=== PATIENT | female | born 1970 | race Caucasian/White ===

== ENCOUNTER → 2018-10-12 08:25 | Outpatient (CLI) | payer OTHER, SELFPAY ==
[2018-10-12 09:10] LABS: Add Manual Diff / Slide Review NO; Basophils Percent Auto 1.1 % (0-2); Eosinophils Percent Auto 5.4 % (2-4); Hematocrit 33.3 % (36-46); Hemoglobin 11.2 g/dL (12.0-16.0); Lymphocytes Percent Auto 30.9 % (25-40); Mean Corpuscular HGB Conc 33.7 % (30-36); Mean Corpuscular Hemoglobin 29.6 PG (26-34); Mean Corpuscular Volume 87.9 fL (80-100); Monocytes Percent Auto 7.6 % (3-14); Neutrophils Absolute Auto 1500 /uL (1500-7000); Platelet Count 161 X10^3/uL (150-400); Red Blood Cell Count 3.79 X10^6/uL (4.0-5.2); Red Cell Distribution Width 13.1 % (11.6-14.8); White Blood Cell Count 2.8 X10^3/uL (4.5-11.0)
[2018-10-12 09:27] LABS: Alanine Aminotransferase 29 IU/L (9-52); Albumin 4.3 g/dL (3.5-5.0); Albumin Globulin Ratio 1.7 (1.0-2.8); Alkaline Phosphatase 53 U/L (38-126); Aspartate Aminotransferase 29 IU/L (14-36); BUN Creatinine Ratio 11.3 (6-22); Bilirubin Total 0.4 mg/dL (0.2-1.3); Blood Urea Nitrogen 9 mg/dL (7-17); Calcium 9.1 mg/dL (8.4-10.2); Carbon Dioxide 27 mmol/L (22-32); Chloride 103 mmol/L (98-107); Cholesterol 137 mg/dL (140-199); Estimated Glomerular Filt Rate > 60.0 mL/min (>60); Globulin 2.6 g/dL (1.7-4.1); Glucose 91 mg/dL (70-100); HDL Cholesterol 53 mg/dL (40-60); HEMOLYSIS < 15 (0-50); LDL Cholesterol Calculated 76 mg/dL (<100); Sodium 140 mmol/L (137-145); Total Protein 6.9 g/dL (6.3-8.2); Triglycerides 42 mg/dL (35-150)
[2018-10-12 10:16] LABS: TSH w/ Reflex to FT4 1.95 uIU/mL (0.47-4.68)
== END ==
PROVIDERS: PCP Family Medicine; Visit Provider Family Medicine
DX: Z00.00 Encounter for general adult medical examination without abnormal findings (principal)
CPT/HCPCS: 36415; 80053; 80061; 84443; 85025

== ENCOUNTER 2019-06-19 11:30 | Outpatient (RCR) | payer OTHER, SELFPAY ==
--- NOTE | 2019-05-08 19:52 | PT.OIE ---
Current Diagnoses Sacroiliitis, not elsewhere classified (05/02/19) Stress incontinence (female) (male) (05/02/19) Pelvic muscle wasting (05/02/19) Provider Visit Care Team Role Provider Type Zakiya Berger MD Attending Provider Physician Primary Care Provider Specialty: Family Practice Address: [address] [place] [address], [id number] Email: Physical Therapy Initial Evaluation PT-OP-A Visit Information Start: 05/08/19 19:17 Freq: Status: Active Protocol: Document 05/02/19 11:15 [facility] (Rec: 05/08/19 19:49 [facility] [email or web address]) Out-Patient Physical Therapy Visit Information Visit Information Visit Type Initial Evaluation Visit Note 48 year old female with urinary stress incontinence symptoms and history of R SI pain. She is s/p 6 vaginal deliveries and after each delivery she notes she had more problems with urinary incontinence Visit Start Time 11:15 Visit Stop Time 12:00 Total Visit Minutes 45 Visit Number 1 Evaluation Information Evaluation Date 05/08/19 PT-OP-B Current Condition Start: 05/08/19 19:17 Freq: Status: Active Protocol: Document 05/02/19 11:15 [facility] (Rec: 05/08/19 19:49 [facility] [email or web address]) Current Condition History of Current Condition Onset Date over the span of 10 years Current Complaints urinary leakage with running, jumping, punching in karate, lifting History of Current Condition 48 year old female with urinary stress incontinence that has worsened over time with her child births. She has had 6 vaginal deliveries and her youngest child is 5 years old. She likes to do Karate and there are certain moves she is unable to do as she will leak. She also leaks with running, jumping, and carrying heavy objects. Other past medical history includes a history of R SI pain, asthma Treatment Goals Patient/Caregiver Goals To be able to contine with Karate without leaking, run after her kids, jump on the trampoline without leaking Prior Functional Status Baseline Function- ADL's Independent Baseline Function- Mobility Independent Current Functional Impairments (Reported) Functional Limitations- Recreation/ Urinary leakage with Hobbies recreational activies PT-OP-C Subjective Start: 05/08/19 19:17 Freq: Status: Active Protocol: Document 05/08/19 11:15 [facility] (Rec: 05/08/19 19:51 [facility] [email or web address]) OP-PT Pain Assessment Location R SI pain Pain Location Details R SI JOINT Intensity 6 Scale Used Numeric (1 - 10) Description Aching Tender With Movement Frequency Intermittent Pain Aggravating Factors Changing Position ADL's Activity Exercise Bending Lifting PT-OP-I Pelvic Floor Start: 05/08/19 19:17 Freq: Status: Active Protocol: Document 05/02/19 11:15 [facility] (Rec: 05/08/19 19:49 [facility] [email or web address]) Pelvic Floor Assessment Urine Pelvic Floor Surgery No Urinary Symptoms Falling Out Feeling/Heavy Other Urinary Symptoms Cristina notes she will experience symptoms of heavyness with exertion or straining and at the end of each day. Urinary Stress incontinence Leakage Size Medium Leakage Cause Cough Exercise Lifting Sneeze Urge Leaks Per Day 5-7 per week Voiding Frequency 7-10 times per day Nocturia no Urine Pad Type Panty Liner Pelvic Clock Pelvic Clock 12-3 Atrophy Pelvic Clock 3-6 Atrophy Pelvic Clock 6-9 Guarding Tightness Pelvic Clock 9-12 Atrophy Prolapse Uterine Prolapse Grade 2 SEMG (uV) Baseline 2 10 Second Contraction 6.5 Recruitment Pattern Fair Relaxation Fair Holding Poor/Slow Stability of Hold Poor/Slow SEMG Stability of Rest Fair Contraction Ability Voluntary Contraction Weak Voluntary Relaxation Weak Manual Muscle Testing Left 3 Manual Muscle Testing Right 3 Manual Muscle Testing Anterior 2 Manual Muscle Testing Posterior 3 Muscle Endurance (Seconds) 4 Comments Pelvic Floor Comments Pelvic floor guarding on the right side of the illiococcygeus. It is the right side that Cristina often gets SI pain on as well. Cristina was guarded on EMG biofeedback until her legs were placed over a bolster and then she did much better and resting tone went down PT-OP-J Posture/Palpation/Skin Start: 05/08/19 19:17 Freq: Status: Active Protocol: Document 05/02/19 11:15 [facility] (Rec: 05/08/19 19:49 [facility] [email or web address]) Palpation Assessment Location One Palpation Location Right SI, PSIS Palpation Findings Tenderness Palpation Details pain at the right SI rated 0-6 .5 depending on activity PT-OP-Q Treatments Start: 05/08/19 19:17 Freq: Status: Active Protocol: Document 05/02/19 11:15 [facility] (Rec: 05/08/19 19:49 [facility] [email or web address]) Therapeutic Exercises Supine Exercises 2 Supine Exercise Name happy baby stretch 1 Supine Exercise Name EMG biofeedback with pelvic floor exercises Reps/Minutes 10 reps x 3 times per day 10 second hold x 10 sec releax Comments Cristina was educated on anterior pelvic floor facilitation, PT-OP-T Assessment and Plan Start: 05/08/19 19:17 Freq: Status: Active Protocol: Document 05/02/19 11:15 [facility] (Rec: 05/08/19 19:49 [facility] [email or web address]) Physical Therapy Assessment Goals Four Impairment R SI pain and right iliococcygeus muscle guarding Longterm Goal (LTG) WIth manual therapy techniques , biofeedback, and stretches Cristina is able to relax the right lateral wall of the pelvci floor and she has decreased c/o SI pain. Three Impairment Decreased endurance of the levator ani Short Term Goal (STG) Cristina is able to sustain a pelvic floor contraction x 10 seconds in supine STG Duration 4 weeks Longterm Goal (LTG) Cristina is able to sustain a pelvic floor contraction x 10 seconds in standing LTG Duration 8 weeks Two Impairment Decreased strength of the levator ani 2/5 anterior wall, 3/5 post, lateral [employer] Goal (LTG) Improve pelvic floor strength to 4/5 MMT or better LTG Duration 8 weeks One Impairment Urinary stress incontinence Short Term Goal (STG) Decrease leakage from 5-7 times per week to 1-2 and Cristina is educated on proper bracing and breathing techniques to avoid bearing down on the pelvic floor STG Duration 4 weeks [employer]st Goal (LTG) Cristina is able to return to activities such as karate moves without leakage LTG Duration 8 weeks Assessment Summary Assessment Cristina presents to physical therapy today with signs and symptoms of urinary stress incontinence and Right sided SI pain. She has had symptoms worsen over the years with each delivery. She has had 6 vaginal deliveries. She also has a history of right sided SI pain. Cristina reports she does Karate and there is a move where she is in a squat position and has to punch. She is unable to do this due to leakage. She also leaks with running, lifting, carrying heavy objects, or jumping on the trampoline. She describes her SI pain as intermittent and can range from no pain to 6.5/10 pain. With examination today Cristina is weak in her anterior pelvic floor 2/5 MMT. All other MMT of the levator ani is 3/5. There is a 2nd degree uterine prolapse and Cristina describes pelvic heaviness at the end of her day and if she has exerted herself or strained. The right lateral wall of the iliococcygeus is guarded and tight and this is the same side as her SI pain. Treatment will work towards releasing this guarding and improving facilitation of the anterior portion of the levator ani. Endurance is limited to 4-5 seconds so endurance training will be added to her program. Treatment will utilize EMG biofeedback and a possible trial of NMES to help facilitation pelvic floor contractions. Cristina is a good candidate for PT. Physical Therapy Plan Frequency and Duration Frequency of Treatment 1x/Week Duration of Treatment 8 Plan of Care Start Date 05/02/19 Plan of Care End Date 06/27/19 Therapeutic Interventions Therapeutic Interventions Home Exercise Program Manual Therapy Neuromuscular Re-education Patient/Caregiver Education Self-Care/Home Management Soft Tissue Mobilization Therapeutic Exercises Modalities Biofeedback Electric Stimulation Next Visit Focus/Plan Next Note Type Treatment Note Next Visit Plan Review pelvic floor facilitation on EMG biofeedback, pelvic stretches to decreased right sided guarding and SI pain
--- NOTE | 2019-05-21 17:26 | PT.OTN ---
Current Diagnoses Sacroiliitis, not elsewhere classified (05/21/19) Stress incontinence (female) (male) (05/21/19) Pelvic muscle wasting (05/21/19) Physical Therapy Treatment Note PT-OP-A Visit Information Start: 05/08/19 19:17 Freq: Status: Active Protocol: Document 05/21/19 17:18 [facility] (Rec: 05/21/19 17:26 [facility] [email or web address]) Out-Patient Physical Therapy Visit Information Visit Information Visit Type Treatment Note Visit Start Time 15:15 Visit Stop Time 16:00 Total Visit Minutes 45 Visit Number 2 PT-OP-B Current Condition Start: 05/08/19 19:17 Freq: Status: Active Protocol: Document 05/02/19 11:15 [facility] (Rec: 05/08/19 19:49 [facility] [email or web address]) Current Condition History of Current Condition Onset Date over the span of 10 years Current Complaints urinary leakage with running, jumping, punching in karate, lifting History of Current Condition 48 year old female with urinary stress incontinence that has worsened over time with her child births. She has had 6 vaginal deliveries and her youngest child is 5 years old. She likes to do Karate and there are certain moves she is unable to do as she will leak. She also leaks with running, jumping, and carrying heavy objects. Other past medical history includes a history of R SI pain, asthma Treatment Goals Patient/Caregiver Goals To be able to contine with Karate without leaking, run after her kids, jump on the trampoline without leaking Prior Functional Status Baseline Function- ADL's Independent Baseline Function- Mobility Independent Current Functional Impairments (Reported) Functional Limitations- Recreation/ Urinary leakage with Hobbies recreational activies PT-OP-C Subjective Start: 05/08/19 19:17 Freq: Status: Active Protocol: Document 05/21/19 17:18 [facility] (Rec: 05/21/19 17:26 [facility] [email or web address]) OP-PT Subjective Patient Comments Patient Comments Cristina reports she had a appt with dr Silverio and is going to get a sling repair done the end of July PT-OP-I Pelvic Floor Start: 05/08/19 19:17 Freq: Status: Active Protocol: Document 05/02/19 11:15 [facility] (Rec: 05/08/19 19:49 [facility] [email or web address]) Pelvic Floor Assessment Urine Pelvic Floor Surgery No Urinary Symptoms Falling Out Feeling/Heavy Other Urinary Symptoms Cristina notes she will experience symptoms of heavyness with exertion or straining and at the end of each day. Urinary Stress incontinence Leakage Size Medium Leakage Cause Cough Exercise Lifting Sneeze Urge Leaks Per Day 5-7 per week Voiding Frequency 7-10 times per day Nocturia no Urine Pad Type Panty Liner Pelvic Clock Pelvic Clock 12-3 Atrophy Pelvic Clock 3-6 Atrophy Pelvic Clock 6-9 Guarding Tightness Pelvic Clock 9-12 Atrophy Prolapse Uterine Prolapse Grade 2 SEMG (uV) Baseline 2 10 Second Contraction 6.5 Recruitment Pattern Fair Relaxation Fair Holding Poor/Slow Stability of Hold Poor/Slow SEMG Stability of Rest Fair Contraction Ability Voluntary Contraction Weak Voluntary Relaxation Weak Manual Muscle Testing Left 3 Manual Muscle Testing Right 3 Manual Muscle Testing Anterior 2 Manual Muscle Testing Posterior 3 Muscle Endurance (Seconds) 4 Comments Pelvic Floor Comments Pelvic floor guarding on the right side of the illiococcygeus. It is the right side that Cristina often gets SI pain on as well. Cristina was guarded on EMG biofeedback until her legs were placed over a bolster and then she did much better and resting tone went down PT-OP-J Posture/Palpation/Skin Start: 05/08/19 19:17 Freq: Status: Active Protocol: Document 05/02/19 11:15 [facility] (Rec: 05/08/19 19:49 [facility] [email or web address]) Palpation Assessment Location One Palpation Location Right SI, PSIS Palpation Findings Tenderness Palpation Details pain at the right SI rated 0-6 .5 depending on activity PT-OP-Q Treatments Start: 05/08/19 19:17 Freq: Status: Active Protocol: Document 05/21/19 17:18 [facility] (Rec: 05/21/19 17:26 [facility] [email or web address]) Therapeutic Exercises Supine Exercises 6 Supine Exercise Name standing goddess pose with pelvic floor contraction 5 Supine Exercise Name templates for eccentric control and coordination 4 Supine Exercise Name roll outs with theraband Reps/Minutes 3 x 10 reps 3 Supine Exercise Name quick contractions Reps/Minutes x 10 2 Supine Exercise Name happy baby stretch Comments and pelvic floor squat in full squat position as an option 1 Supine Exercise Name EMG biofeedback with pelvic floor exercises Reps/Minutes 10 reps x 3 times per day 10 second hold x 10 sec releax Comments Cristina was educated on anterior pelvic floor facilitation, Self-Care/Home Management Treatment Education Patient Education Home Exercise Program Other Education education on pelvic floor contraction with sit to stand and in squat position for Karate with punching. Avoidance of downward pressure with So Tam Do movements PT-OP-T Assessment and Plan Start: 05/08/19 19:17 Freq: Status: Active Protocol: Document 05/21/19 17:18 [facility] (Rec: 05/21/19 17:26 [facility] [email or web address]) Physical Therapy Assessment Assessment Summary Assessment Cristina tends to use her adductors for pelvic floor contraction, I worked with adding in hip ER rotation today to begin improving strength of the rotators. We also worked on her standing positions with So Tam Do. Continue to work on pelvic floor endurance. Resting tone was improved today. Physical Therapy Plan Frequency and Duration Frequency of Treatment 1x/Week Duration of Treatment 8 Plan of Care Start Date 05/02/19 Plan of Care End Date 06/27/19 Therapeutic Interventions Therapeutic Interventions Home Exercise Program Manual Therapy Neuromuscular Re-education Patient/Caregiver Education Self-Care/Home Management Soft Tissue Mobilization Therapeutic Exercises Modalities Biofeedback Electric Stimulation Next Visit Focus/Plan Next Note Type Treatment Note Next Visit Plan begin TA stabilization in supine, seated Pelvic floor engagement with punches
--- NOTE | 2019-05-28 15:00 | PT.OTN ---
Current Diagnoses Sacroiliitis, not elsewhere classified (05/28/19) Stress incontinence (female) (male) (05/28/19) Pelvic muscle wasting (05/28/19) Physical Therapy Treatment Note PT-OP-A Visit Information Start: 05/08/19 19:17 Freq: Status: Active Protocol: Document 05/28/19 14:52 [facility] (Rec: 05/28/19 15:00 [facility] [email or web address]) Out-Patient Physical Therapy Visit Information Visit Information Visit Type Treatment Note Visit Start Time 13:45 Visit Stop Time 14:30 Total Visit Minutes 45 Visit Number 3 Evaluation Information Evaluation Date 05/08/19 PT-OP-B Current Condition Start: 05/08/19 19:17 Freq: Status: Active Protocol: Document 05/02/19 11:15 [facility] (Rec: 05/08/19 19:49 [facility] [email or web address]) Current Condition History of Current Condition Onset Date over the span of 10 years Current Complaints urinary leakage with running, jumping, punching in karate, lifting History of Current Condition 48 year old female with urinary stress incontinence that has worsened over time with her child births. She has had 6 vaginal deliveries and her youngest child is 5 years old. She likes to do Karate and there are certain moves she is unable to do as she will leak. She also leaks with running, jumping, and carrying heavy objects. Other past medical history includes a history of R SI pain, asthma Treatment Goals Patient/Caregiver Goals To be able to contine with Karate without leaking, run after her kids, jump on the trampoline without leaking Prior Functional Status Baseline Function- ADL's Independent Baseline Function- Mobility Independent Current Functional Impairments (Reported) Functional Limitations- Recreation/ Urinary leakage with Hobbies recreational activies PT-OP-C Subjective Start: 05/08/19 19:17 Freq: Status: Active Protocol: Document 05/28/19 14:52 [facility] (Rec: 05/28/19 15:00 [facility] [email or web address]) OP-PT Subjective Patient Comments Patient Comments Cristina reports she has been working on her exercises at home. She has been doing her full squat stretch PT-OP-I Pelvic Floor Start: 05/08/19 19:17 Freq: Status: Active Protocol: Document 05/02/19 11:15 [facility] (Rec: 05/08/19 19:49 [facility] [email or web address]) Pelvic Floor Assessment Urine Pelvic Floor Surgery No Urinary Symptoms Falling Out Feeling/Heavy Other Urinary Symptoms Cristina notes she will experience symptoms of heavyness with exertion or straining and at the end of each day. Urinary Stress incontinence Leakage Size Medium Leakage Cause Cough Exercise Lifting Sneeze Urge Leaks Per Day 5-7 per week Voiding Frequency 7-10 times per day Nocturia no Urine Pad Type Panty Liner Pelvic Clock Pelvic Clock 12-3 Atrophy Pelvic Clock 3-6 Atrophy Pelvic Clock 6-9 Guarding Tightness Pelvic Clock 9-12 Atrophy Prolapse Uterine Prolapse Grade 2 SEMG (uV) Baseline 2 10 Second Contraction 6.5 Recruitment Pattern Fair Relaxation Fair Holding Poor/Slow Stability of Hold Poor/Slow SEMG Stability of Rest Fair Contraction Ability Voluntary Contraction Weak Voluntary Relaxation Weak Manual Muscle Testing Left 3 Manual Muscle Testing Right 3 Manual Muscle Testing Anterior 2 Manual Muscle Testing Posterior 3 Muscle Endurance (Seconds) 4 Comments Pelvic Floor Comments Pelvic floor guarding on the right side of the illiococcygeus. It is the right side that Cristina often gets SI pain on as well. Cristina was guarded on EMG biofeedback until her legs were placed over a bolster and then she did much better and resting tone went down PT-OP-J Posture/Palpation/Skin Start: 05/08/19 19:17 Freq: Status: Active Protocol: Document 05/02/19 11:15 [facility] (Rec: 05/08/19 19:49 [facility] [email or web address]) Palpation Assessment Location One Palpation Location Right SI, PSIS Palpation Findings Tenderness Palpation Details pain at the right SI rated 0-6 .5 depending on activity PT-OP-Q Treatments Start: 05/08/19 19:17 Freq: Status: Active Protocol: Document 05/28/19 14:52 [facility] (Rec: 05/28/19 15:00 [facility] [email or web address]) Therapeutic Exercises Supine Exercises 9 Supine Exercise Name pelvic floor endurance holds with punches Comments worked on this in supine for her karate postures 8 Supine Exercise Name TA with heel slides 7 Supine Exercise Name TA facilitation with marches 6 Supine Exercise Name standing goddess pose with pelvic floor contraction Comments worked on pelvic floro contraction with stand and with punches 1 Supine Exercise Name EMG biofeedback with pelvic floor exercises Reps/Minutes 10 reps x 3 times per day 10 second hold x 10 sec releax Comments Cristina was educated on anterior pelvic floor facilitation, Self-Care/Home Management Treatment Education Patient Education Home Exercise Program PT-OP-T Assessment and Plan Start: 05/08/19 19:17 Freq: Status: Active Protocol: Document 05/28/19 14:52 [facility] (Rec: 05/28/19 15:00 [facility] [email or web address]) Physical Therapy Assessment Assessment Summary Assessment left side of the pelvis unlocks with heel slides and TA engagement. Started working on core engagement with punches. Improved endurance of the pelvic floor today with long holds and resting tone was at baseline so squat stretch is really helping Physical Therapy Plan Frequency and Duration Frequency of Treatment 1x/Week Duration of Treatment 8 Plan of Care Start Date 05/02/19 Plan of Care End Date 06/27/19 Therapeutic Interventions Therapeutic Interventions Home Exercise Program Manual Therapy Neuromuscular Re-education Patient/Caregiver Education Self-Care/Home Management Soft Tissue Mobilization Therapeutic Exercises Modalities Biofeedback Electric Stimulation Next Visit Focus/Plan Next Note Type Treatment Note Next Visit Plan review TA stabilization and progression, review all established exercises, EMG biofeedback endurance and eccentric control training
--- NOTE | 2019-06-04 13:57 | PT.OTN ---
Current Diagnoses Sacroiliitis, not elsewhere classified (06/04/19) Stress incontinence (female) (male) (06/04/19) Pelvic muscle wasting (06/04/19) Physical Therapy Treatment Note PT-OP-A Visit Information Start: 05/08/19 19:17 Freq: Status: Active Protocol: Document 06/04/19 13:53 [facility] (Rec: 06/04/19 13:57 [facility] [id number]) Out-Patient Physical Therapy Visit Information Visit Information Visit Type Treatment Note Visit Start Time 12:15 Visit Stop Time 13:00 Total Visit Minutes 45 PT-OP-B Current Condition Start: 05/08/19 19:17 Freq: Status: Active Protocol: Document 05/02/19 11:15 [facility] (Rec: 05/08/19 19:49 [facility] [email or web address]) Current Condition History of Current Condition Onset Date over the span of 10 years Current Complaints urinary leakage with running, jumping, punching in karate, lifting History of Current Condition 48 year old female with urinary stress incontinence that has worsened over time with her child births. She has had 6 vaginal deliveries and her youngest child is 5 years old. She likes to do Karate and there are certain moves she is unable to do as she will leak. She also leaks with running, jumping, and carrying heavy objects. Other past medical history includes a history of R SI pain, asthma Treatment Goals Patient/Caregiver Goals To be able to contine with Karate without leaking, run after her kids, jump on the trampoline without leaking Prior Functional Status Baseline Function- ADL's Independent Baseline Function- Mobility Independent Current Functional Impairments (Reported) Functional Limitations- Recreation/ Urinary leakage with Hobbies recreational activies PT-OP-C Subjective Start: 05/08/19 19:17 Freq: Status: Active Protocol: Document 06/04/19 13:53 [facility] (Rec: 06/04/19 13:57 [facility] [id number]) OP-PT Subjective Patient Comments Patient Comments Cristina reports she sprained her right ankle so she hasn't been doing as much of the standing exercises PT-OP-I Pelvic Floor Start: 05/08/19 19:17 Freq: Status: Active Protocol: Document 05/02/19 11:15 [facility] (Rec: 05/08/19 19:49 [facility] [email or web address]) Pelvic Floor Assessment Urine Pelvic Floor Surgery No Urinary Symptoms Falling Out Feeling/Heavy Other Urinary Symptoms Cristina notes she will experience symptoms of heavyness with exertion or straining and at the end of each day. Urinary Stress incontinence Leakage Size Medium Leakage Cause Cough,Exercise,Lifting,Sneeze, Urge Leaks Per Day 5-7 per week Voiding Frequency 7-10 times per day Nocturia no Urine Pad Type Panty Liner Pelvic Clock Pelvic Clock 12-3 Atrophy Pelvic Clock 3-6 Atrophy Pelvic Clock 6-9 Guarding,Tightness Pelvic Clock 9-12 Atrophy Prolapse Uterine Prolapse Grade 2 SEMG (uV) Baseline 2 10 Second Contraction 6.5 Recruitment Pattern Fair Relaxation Fair Holding Poor/Slow Stability of Hold Poor/Slow SEMG Stability of Rest Fair Contraction Ability Voluntary Contraction Weak Voluntary Relaxation Weak Manual Muscle Testing Left 3 Manual Muscle Testing Right 3 Manual Muscle Testing Anterior 2 Manual Muscle Testing Posterior 3 Muscle Endurance (Seconds) 4 Comments Pelvic Floor Comments Pelvic floor guarding on the right side of the illiococcygeus. It is the right side that Cristina often gets SI pain on as well. Cristina was guarded on EMG biofeedback until her legs were placed over a bolster and then she did much better and resting tone went down PT-OP-J Posture/Palpation/Skin Start: 05/08/19 19:17 Freq: Status: Active Protocol: Document 05/02/19 11:15 [facility] (Rec: 05/08/19 19:49 [facility] [email or web address]) Palpation Assessment Location One Palpation Location Right SI, PSIS Palpation Findings Tenderness Palpation Details pain at the right SI rated 0-6 .5 depending on activity PT-OP-Q Treatments Start: 05/08/19 19:17 Freq: Status: Active Protocol: Document 06/04/19 13:53 [facility] (Rec: 06/04/19 13:57 [facility] [id number]) Therapeutic Exercises Supine Exercises 10 Supine Exercise Name TA with SLR Comments decreased SI unlocking with this 8 Supine Exercise Name TA with heel slides 7 Supine Exercise Name TA facilitation with marches 5 Supine Exercise Name templates for eccentric control and coordination 4 Supine Exercise Name roll outs with theraband Reps/Minutes 3 x 10 reps 3 Supine Exercise Name quick contractions Reps/Minutes x 10 1 Supine Exercise Name EMG biofeedback with pelvic floor exercises Reps/Minutes 10 reps x 3 times per day 10 second hold x 10 sec releax Comments Cristina was educated on anterior pelvic floor facilitation, Sidelying Exercises 1 Sidelying Exercise Name clam shells Reps/Minutes 3 x 10 reps PT-OP-T Assessment and Plan Start: 05/08/19 19:17 Freq: Status: Active Protocol: Document 06/04/19 13:53 [facility] (Rec: 06/04/19 13:57 [facility] [id number]) Physical Therapy Assessment Assessment Summary Assessment Resting tone on EMG biofeedback at 0 uv, improving endurance of her pelvic floor , added in SLR with TA and pelvic floor and clam shells. Physical Therapy Plan Next Visit Focus/Plan Next Note Type Treatment Note Next Visit Plan begin standing pelvic floor contractions, standing contractions with ab verma pose
--- NOTE | 2019-06-12 12:39 | PT.OTN ---
Current Diagnoses Sacroiliitis, not elsewhere classified (06/12/19) Stress incontinence (female) (male) (06/12/19) Pelvic muscle wasting (06/12/19) Physical Therapy Treatment Note PT-OP-A Visit Information Start: 05/08/19 19:17 Freq: Status: Active Protocol: Document 06/12/19 12:25 [facility] (Rec: 06/12/19 12:26 [facility] [email or web address]) Out-Patient Physical Therapy Visit Information Visit Information Visit Type Treatment Note Visit Start Time 11:25 Visit Stop Time 12:00 Total Visit Minutes 35 Visit Number 5 Evaluation Information Evaluation Date 05/08/19 PT-OP-B Current Condition Start: 05/08/19 19:17 Freq: Status: Active Protocol: Document 05/02/19 11:15 [facility] (Rec: 05/08/19 19:49 [facility] [email or web address]) Current Condition History of Current Condition Onset Date over the span of 10 years Current Complaints urinary leakage with running, jumping, punching in karate, lifting History of Current Condition 48 year old female with urinary stress incontinence that has worsened over time with her child births. She has had 6 vaginal deliveries and her youngest child is 5 years old. She likes to do Karate and there are certain moves she is unable to do as she will leak. She also leaks with running, jumping, and carrying heavy objects. Other past medical history includes a history of R SI pain, asthma Treatment Goals Patient/Caregiver Goals To be able to contine with Karate without leaking, run after her kids, jump on the trampoline without leaking Prior Functional Status Baseline Function- ADL's Independent Baseline Function- Mobility Independent Current Functional Impairments (Reported) Functional Limitations- Recreation/ Urinary leakage with Hobbies recreational activies PT-OP-C Subjective Start: 05/08/19 19:17 Freq: Status: Active Protocol: Document 06/12/19 12:35 [facility] (Rec: 06/12/19 12:39 [facility] [email or web address]) OP-PT Subjective Patient Comments Patient Comments Cristina reports she did not leak with sneezing three times Patient Reported Progress Improving PT-OP-I Pelvic Floor Start: 05/08/19 19:17 Freq: Status: Active Protocol: Document 05/02/19 11:15 [facility] (Rec: 05/08/19 19:49 [facility] [email or web address]) Pelvic Floor Assessment Urine Pelvic Floor Surgery No Urinary Symptoms Falling Out Feeling/Heavy Other Urinary Symptoms Cristina notes she will experience symptoms of heavyness with exertion or straining and at the end of each day. Urinary Stress incontinence Leakage Size Medium Leakage Cause Cough,Exercise,Lifting,Sneeze, Urge Leaks Per Day 5-7 per week Voiding Frequency 7-10 times per day Nocturia no Urine Pad Type Panty Liner Pelvic Clock Pelvic Clock 12-3 Atrophy Pelvic Clock 3-6 Atrophy Pelvic Clock 6-9 Guarding,Tightness Pelvic Clock 9-12 Atrophy Prolapse Uterine Prolapse Grade 2 SEMG (uV) Baseline 2 10 Second Contraction 6.5 Recruitment Pattern Fair Relaxation Fair Holding Poor/Slow Stability of Hold Poor/Slow SEMG Stability of Rest Fair Contraction Ability Voluntary Contraction Weak Voluntary Relaxation Weak Manual Muscle Testing Left 3 Manual Muscle Testing Right 3 Manual Muscle Testing Anterior 2 Manual Muscle Testing Posterior 3 Muscle Endurance (Seconds) 4 Comments Pelvic Floor Comments Pelvic floor guarding on the right side of the illiococcygeus. It is the right side that Cristina often gets SI pain on as well. Cristina was guarded on EMG biofeedback until her legs were placed over a bolster and then she did much better and resting tone went down PT-OP-J Posture/Palpation/Skin Start: 05/08/19 19:17 Freq: Status: Active Protocol: Document 05/02/19 11:15 [facility] (Rec: 05/08/19 19:49 [facility] [email or web address]) Palpation Assessment Location One Palpation Location Right SI, PSIS Palpation Findings Tenderness Palpation Details pain at the right SI rated 0-6 .5 depending on activity PT-OP-Q Treatments Start: 05/08/19 19:17 Freq: Status: Active Protocol: Document 06/12/19 12:35 [facility] (Rec: 06/12/19 12:39 [facility] [email or web address]) Therapeutic Exercises Supine Exercises 9 Supine Exercise Name pelvic floor endurance holds with punches Comments worked on this in supine for her karate postures 5 Supine Exercise Name templates for eccentric control and coordination Comments did these in standing today 3 Supine Exercise Name quick contractions Reps/Minutes x 10 1 Supine Exercise Name EMG biofeedback with pelvic floor exercises Reps/Minutes 10 reps x 3 times per day 10 second hold x 10 sec releax Comments Cristina was educated on anterior pelvic floor facilitation, Standing Exercises 3 Standing Exercise Name squats with pelvic floor squeeze on return to stand 2 Standing Exercise Name lunge position with pelvic floor squeeze on return to stand 1 Standing Exercise Name standing pelvic floor isolations, 5 sec holds, 10 sec holds PT-OP-T Assessment and Plan Start: 05/08/19 19:17 Freq: Status: Active Protocol: Document 06/12/19 12:35 [facility] (Rec: 06/12/19 12:39 [facility] [email or web address]) Physical Therapy Assessment Assessment Summary Assessment Cristina realized today that with the force of the yell that she does in karate it is possible she is pushing down onher pelvic floor. We worked on engaging the pelvic floor with the exhale in standing. Her resting tone was at baseline today. Her average on EMG biofeedback was 9.3 with max of 21.2 uv Physical Therapy Plan Frequency and Duration Frequency of Treatment 1x/Week Duration of Treatment 8 Plan of Care Start Date 05/02/19 Plan of Care End Date 06/27/19 Next Visit Focus/Plan Next Note Type Treatment Note Next Visit Plan Cristina has 1 visit left in PT , review all established exercises with her next visit, recheck pelvic floor strength
--- NOTE | 2019-06-27 16:51 | PT.OTN ---
Current Diagnoses Sacroiliitis, not elsewhere classified (06/19/19) Stress incontinence (female) (male) (06/19/19) Pelvic muscle wasting (06/19/19) Physical Therapy Treatment Note PT-OP-A Visit Information Start: 05/08/19 19:17 Freq: Status: Active Protocol: Document 06/19/19 11:30 [facility] (Rec: 06/27/19 16:51 [facility] [email or web address]) Out-Patient Physical Therapy Visit Information Visit Information Visit Type Treatment Note Visit Start Time 11:30 Visit Stop Time 12:05 Total Visit Minutes 35 Visit Number 6 PT-OP-B Current Condition Start: 05/08/19 19:17 Freq: Status: Active Protocol: Document 05/02/19 11:15 [facility] (Rec: 05/08/19 19:49 [facility] [email or web address]) Current Condition History of Current Condition Onset Date over the span of 10 years Current Complaints urinary leakage with running, jumping, punching in karate, lifting History of Current Condition 48 year old female with urinary stress incontinence that has worsened over time with her child births. She has had 6 vaginal deliveries and her youngest child is 5 years old. She likes to do Karate and there are certain moves she is unable to do as she will leak. She also leaks with running, jumping, and carrying heavy objects. Other past medical history includes a history of R SI pain, asthma Treatment Goals Patient/Caregiver Goals To be able to contine with Karate without leaking, run after her kids, jump on the trampoline without leaking Prior Functional Status Baseline Function- ADL's Independent Baseline Function- Mobility Independent Current Functional Impairments (Reported) Functional Limitations- Recreation/ Urinary leakage with Hobbies recreational activies PT-OP-C Subjective Start: 05/08/19 19:17 Freq: Status: Active Protocol: Document 06/19/19 11:30 [facility] (Rec: 06/27/19 16:51 [facility] [email or web address]) OP-PT Subjective Patient Comments Patient Comments pt reports she was able to stop her urine flow this past week which is the first time she has been able to do that. Patient Reported Progress Improving PT-OP-I Pelvic Floor Start: 05/08/19 19:17 Freq: Status: Active Protocol: Document 05/02/19 11:15 [facility] (Rec: 05/08/19 19:49 [facility] [email or web address]) Pelvic Floor Assessment Urine Pelvic Floor Surgery No Urinary Symptoms Falling Out Feeling/Heavy Other Urinary Symptoms Cristina notes she will experience symptoms of heavyness with exertion or straining and at the end of each day. Urinary Stress incontinence Leakage Size Medium Leakage Cause Cough,Exercise,Lifting,Sneeze, Urge Leaks Per Day 5-7 per week Voiding Frequency 7-10 times per day Nocturia no Urine Pad Type Panty Liner Pelvic Clock Pelvic Clock 12-3 Atrophy Pelvic Clock 3-6 Atrophy Pelvic Clock 6-9 Guarding,Tightness Pelvic Clock 9-12 Atrophy Prolapse Uterine Prolapse Grade 2 SEMG (uV) Baseline 2 10 Second Contraction 6.5 Recruitment Pattern Fair Relaxation Fair Holding Poor/Slow Stability of Hold Poor/Slow SEMG Stability of Rest Fair Contraction Ability Voluntary Contraction Weak Voluntary Relaxation Weak Manual Muscle Testing Left 3 Manual Muscle Testing Right 3 Manual Muscle Testing Anterior 2 Manual Muscle Testing Posterior 3 Muscle Endurance (Seconds) 4 Comments Pelvic Floor Comments Pelvic floor guarding on the right side of the illiococcygeus. It is the right side that Cristina often gets SI pain on as well. Cristina was guarded on EMG biofeedback until her legs were placed over a bolster and then she did much better and resting tone went down PT-OP-J Posture/Palpation/Skin Start: 05/08/19 19:17 Freq: Status: Active Protocol: Document 05/02/19 11:15 [facility] (Rec: 05/08/19 19:49 [email or web address] [email or web address]) Palpation Assessment Location One Palpation Location Right SI, PSIS Palpation Findings Tenderness Palpation Details pain at the right SI rated 0-6 .5 depending on activity PT-OP-Q Treatments Start: 05/08/19 19:17 Freq: Status: Active Protocol: Document 06/19/19 11:30 [facility] (Rec: 06/27/19 16:51 [email or web address]) Therapeutic Exercises Supine Exercises 8 Supine Exercise Name TA with heel slides 5 Supine Exercise Name templates for eccentric control and coordination Comments did these in standing today 3 Supine Exercise Name quick contractions Reps/Minutes x 10 1 Supine Exercise Name EMG biofeedback with pelvic floor exercises Reps/Minutes 10 reps x 3 times per day 10 second hold x 10 sec releax Comments Cristina was educated on anterior pelvic floor facilitation, Sidelying Exercises 1 Sidelying Exercise Name clam shells Reps/Minutes 3 x 10 reps Standing Exercises 2 Standing Exercise Name lunge position with pelvic floor squeeze on return to stand 1 Standing Exercise Name standing pelvic floor isolations, 5 sec holds, 10 sec holds PT-OP-T Assessment and Plan Start: 05/08/19 19:17 Freq: Status: Active Protocol: Document 06/19/19 11:30 [facility] (Rec: 06/27/19 16:51 [facility] [email or web address]) Physical Therapy Assessment Assessment Summary Assessment Cristina is doing much better overall and notes decresaed complaints of leakage. She plans on continuing at home with her pelvic floor strength and is scheduled for surgery the end of July. Physical Therapy Plan Frequency and Duration Frequency of Treatment 1x/Week Duration of Treatment 8 Plan of Care Start Date 05/02/19 Plan of Care End Date 06/27/19 Discharge Physical Therapy Discharge Reasons Goals Met
== END 2019-08-16 10:16 ==
LOC: PHYS 11:30
PROVIDERS: PCP Family Medicine; Visit Provider Family Medicine
DX: N39.3 Stress incontinence (female) (male) (principal); M46.1 Sacroiliitis, not elsewhere classified; N81.84 Pelvic muscle wasting
CPT/HCPCS: 97110; 97161; 97535

== ENCOUNTER → 2019-07-04 19:47 | Outpatient (CLI) | payer OTHER, SELFPAY | PROVIDERS: PCP Family Medicine; Visit Provider Physician Assistant | DX: J02.9 Acute pharyngitis, unspecified (principal) | CPT/HCPCS: 87070; 87147; 87185 ==

== ENCOUNTER 2019-07-29 09:39 | Day surgery (SDC) | payer OTHER, SELFPAY ==
[2019-07-26 12:34] VITALS: BMI 21.5
[2019-07-29] VITALS (9 sets, daily range): BP systolic 95–111; BP diastolic 48–74; PULSE 51–71; RESP 8–16; TEMP 36.2–36.6; O2SAT 99–100; BMI 21.5
[2019-07-29] MEDS: LACTATED RINGERS 1,000 ML 42 ML IV ×2 (10:48→13:41)
--- NOTE | 2019-07-29 11:28 | PM.HP.1 ---
History of Present Illness History of Present Illness Date Patient Seen: 07/29/19 Time Patient Seen: 11:28 Chief complaint: [id number] *OPB* Narrative: Patient is a 48-year-old 8 para 6 with stress urinary incontinence who is here for a TVT with cystoscopy Patient History Medical History (Updated 06/23/19 @ 21:14 by Sybil Dougherty) Allergies (Inactive ~1972) Ankle pain (Resolved) Asthma (Acute ~1984) Celiac disease (Acute ~1972) Chicken pox (Resolved ~1976) Eczema (Acute ~1972) Incomplete miscarriage (Resolved ~2014) Miscarriage (Resolved ~2016) Status post normal childbirth (Resolved) Surgical History (Updated 05/16/19 @ 17:29 by Sakshi Silverio MD) [place] teeth extracted (Acute) Family & Social History Family History (Updated 06/23/19 @ 21:16 by Sybil Dougherty) Father Skin cancer Sister ADHD Substance addiction Grandfather No problems noted. Grandfather History of heart disease Grandmother History of heart disease Social History: household members spouse,family Tobacco & Substance use: Smoking Status Never smoker Meds Home Medications and Allergies Home Medications Medication Instructions Recorded Confirmed Type floradix 1 tab PO DAILY 05/16/19 07/29/19 History multivitamin 1 cap PO DAILY 05/16/19 07/29/19 History vitamin B complex 1 tab PO DAILY 05/16/19 07/29/19 History loratadine [Claritin] 10 mg PO DAILY 07/29/19 07/29/19 History Allergies Allergy/AdvReac Type Severity Reaction Status Date / Time amoxicillin [AMOXICILLIN] Allergy Severe Rash Verified 07/29/19 11:03 clarithromycin Allergy Severe Rash Verified 07/29/19 11:03 [CLARITHROMYCIN] gluten Allergy Severe celiac Verified 07/29/19 11:03 disease ibuprofen [IBUPROFEN] Allergy Severe Flu like Verified 07/29/19 11:03 symptoms Sulfa (Sulfonamide Allergy Severe Rash, Verified 07/29/19 11:03 Antibiotics) Swelling [SULFA (SULFONAMIDE ANTIBIOTICS)] lactase [From [facility]] Allergy Intermediate Rash, Verified 07/29/19 11:03 itching, bloating TREE NUTS Allergy Severe Anaphylaxis Uncoded 07/29/19 11:03 Exam Vital Signs (past 8 hours): - 07/29/19 10:22 Temperature 98 F Pulse Rate 53 L Respiratory Rate 15 Blood Pressure 111/70 Pulse Oximetry 100 Oxygen Delivery Method Room Air Narrative Exam Narrative: HEENT: No thyromegaly, no anterior cervical or supraclavicular lymphadenopathy. Lungs:Clear to auscultation bilaterally, no wheezes. Cardiovascular: Regular rate and rhythm, no murmurs, rubs, or gallops. Abdomen: No scars. No hepatosplenomegaly. No masses palpable. External genitalia: Normal Vagina: Increased urethrovesical angle with Valsalva Cervix: Normal Bimanual exam: 8 Week size uterus. Mobile. Rectal: No masses. Assessment & Plan Assessment & Plan narrative: Assessment: 48-year-old 8 para 6 with stress urinary incontinence and increased urethrovesical angle with Valsalva Plan: TVT with cystoscopy The risks, benefits, and alternatives to the procedure were explained to the patient. The risks including bleeding, infection, injury to the bladder, ureters, or urethra. She understands these risks and agrees to proceed. A full par Q was held and consent form was signed. Time Spent With Patient Time with patient: 15-24 minutes
[2019-07-29] MEDS: CEFAZOLIN 2 GM/100 ML FROZ.PIGGY IV (11:58)
--- NOTE | 2019-07-29 12:21 | SUR.OPER ---
Lithotomy on padded OR bed, head on pillow, arms secured on padded arm boards at <90 degrees abduction. Legs secured in padded yellow fins stirrups.
[2019-07-29] MEDS: SODIUM CHLORIDE 0.9% 100 ML INJ (12:26)
[2019-07-29] MEDS: BUPIVACAINE 0.25% W/ EPI 30 ML VIAL INJ (12:27)
--- NOTE | 2019-07-29 13:01 | PM.PREOP ---
Pre-operative Note Interval Note History & Physical reviewed/Exam performed by Physician: Yes Changes to H&P: No
[2019-07-29] MEDS: CODEINE/ACETAMINOPHEN 30/300 TABLET 1 TAB PO (14:12)
--- NOTE | 2019-07-29 14:14 | SUR.PHASEII ---
PT UP TO BR TO VOID, VOIDED 200CC URINE, BLADDER SCANNED POST VOID FOR 471 CC URINE, PT TOLERATING PO FLUIDS, MEDICATED FOR DISCOMFORT.
--- NOTE | 2019-07-29 21:05 | PM.GYNOP.1 ---
Operative Date/Time/Diagnoses Date of procedure: 07/29/19 Time of procedure: 12:45 Pre-op diagnosis: Stress urinary incontinence Increased urethrovesical angle with Valsalva Post-op diagnosis: same Procedure & Clinicians Procedure: Procedures Operation Date: 07/29/19 11:45 Actual Procedures Side Surgeon p Tensionless Vaginal Tape w/ cystoscopy Sakshi Silverio MD Indications: Stress urinary incontinence Increased urethrovesical angle with Valsalva Surgeon: Sakshi Silverio Bobbin Cleaner Hand: Zheng Tee Anesthesia Type: General Operative Notes Findings: Increased urethrovesical angle with Valsalva TVT not in the bladder on cystoscopy Closure Type: primary Specimen(s): none Applied: catheter Estimated blood loss (mL): 50 Blood products transfused: none Procedure in detail: After informed consent was obtained, the patient was taken to the operating room where she was placed in the dorsal supine position. After adequate general endotracheal anesthesia was achieved, she was placed in the dorsal lithotomy position, and prepped and draped in the usual sterile fashion. A time-out was performed. the patient was placed with her thighs parallel to the floor. Her abdomen was marked in the midline and 2 cm to each side of midline just above the pubic symphysis. The bladder was emptied. 40 cc of 0.25% Marcaine with epinephrine were diluted with 60 cc of saline and injected behind the pubic symphysis, into the space of Retzius, with an 18 gauge spinal needle. Attention was then turned to the vagina where weighted speculum was placed into the vagina. A rigid catheter was placed into the bladder. Allis clamps were placed lateral to the midline approximately 1-1/2 cm from the urethral meatus. 3 cc of 0.25% Marcaine with epinephrine were injected submucosally. A 1 1/2 cm incision was made approximately 1-1/2 cm from the urethral meatus. This was dissected out laterally with the Metzenbaum scissors. with the bladder neck retracted away from the patient's right side 10 cc of 0.25% Marcaine with epinephrine were injected along the proposed path of the TVT. This was repeated on the patient's left side with the bladder neck retracted away from the patient's left side. With the bladder neck retracted away from the patient's right side the space was dissected with Hegar dilators to the # 6 Hegar dilator. This was repeated on the patient's left side with the bladder neck retracted away from the patient's left side. With the bladder neck retracted away from the patient's right side the TVT was placed through the vaginal mucosal incision pointing towards the patient's right shoulder, perforating the urogenital diaphragm and coming up behind the pubic symphysis 2 cm to the right of midline. the TVT introducer was grasped with a Mac. This was repeated on the patient's left side with the bladder neck retracted away from the patient's left side. The rigid portion of the catheter was removed from the Carrillo catheter. The bladder was filled with 240 cc of sterile water. A cystoscopy was performed. There was a bubble at the dome of the bladder. the TVT was not in the bladder. the cystoscope was removed. The TVT was pulled up closer to the urethra with a Machado scissors between the TVT and the urethra. The patient was made to cough and there was no leakage of urine. The sheath surrounding the TVT was removed. the TVT was cut below the skin line. The vaginal mucosa was closed with 4 O Vicryl with a running interlocking suture. hemostasis was achieved. Surgical glue was placed over the suprapubic incisions. A catheter was placed into the bladder and approximately 120 cc of fluid was removed. sponge, lap, and instrument counts were correct x2. The patient tolerated the procedure well, was taken to PACU in stable condition. Complications: none Post-operative Condition: stable Disposition: PACU Plan for aftercare: Home after recovery
== END 2019-07-29 14:36 | disposition home or self-care (01) ==
LOC: OR 09:41 → AC 09:42
PROVIDERS: PCP Family Medicine; Visit Provider Obstetrics & Gynecology
PROC: 0TSD0ZZ Reposition Urethra, Open Approach (ICD-10-PCS; CPT 57288; principal; 2019-07-29 11:45)
DX: N39.3 Stress incontinence (female) (male) (principal)
CPT/HCPCS: 57288; C1771; J0690; J1100; J2250; J2405; J2704; J3010